=== PATIENT | male | born 1930 | race Caucasian/White ===

== ENCOUNTER 2017-01-25 16:16 | Emergency (ER) | payer MEDICARE, BC ==
--- NOTE | 2017-01-25 16:37 | Emergency Department Record ---
History of Present Illness - General Chief Complaint: Difficulty Breathing Stated Complaint: OSMEL Time Seen by Provider: 01/25/17 16:37 Source: Patient Mode of Arrival: Wheelchair Limitations: No limitations - History of Present Illness Initial Comments: pt has been increasingly sob over last few days and has had some chest tightness MD Complaint: Chest pain, Shortness of breath Onset/Timin -: Days(s) Worsens With: Exertion Associated Symptoms: Cough, Other (wheezing) Treatments Prior to Arrival: None - Related Data Home Medications Medication Instructions Recorded Confirmed Last Taken Furosemide [Lasix] 20 mg PO DAILY 01/25/17 01/25/17 01/25/17 Gabapentin [Neurontin] 300 mg PO TID 01/25/17 01/25/17 01/25/17 Hum Insulin NPH/Reg Insulin Hm 8 units SQ DAILY 01/25/17 01/25/17 01/25/17 [Novolin 70/30] Hum Insulin NPH/Reg Insulin Hm 26 units SQ QHS 01/25/17 01/25/17 01/24/17 [Novolin 70/30] Meloxicam [Mobic] 15 mg PO DAILY 01/25/17 01/25/17 01/25/17 Methotrexate [Xatmep] 2.5 mg PO WEEKLY 01/25/17 01/25/17 Unknown Potassium Chloride 8 meq PO DAILY 01/25/17 01/25/17 01/25/17 Pravastatin Sodium [Pravachol] 40 mg PO QHS 01/25/17 01/25/17 01/24/17 Ramipril 10 mg PO DAILY 01/25/17 01/25/17 01/11/17 Tamsulosin HCl [Flomax] 0.4 mg PO DAILY 01/25/17 01/25/17 01/25/17 Allergies Allergy/AdvReac Type Severity Reaction Status Date / Time Sulfa (Sulfonamide Allergy RASH Verified 01/25/17 16:39 Antibiotics) Travel Screening - Travel/Exposure Within Last 30 Days Have you traveled within the last 30 days?: No - Travel/Exposure Within Last Year Have you traveled outside the [place] in the last year?: No - Additonal Travel Details Have you been exposed to anyone with a communicable illness?: No - Travel Symptoms Symptom Screening: None Review of Systems Reviewed: No additional complaints except as noted below Constitutional: Reports: As per HPI. Denies: Chills, Fever, Malaise, Night sweats, Weakness, Weight change Eyes: Reports: As per HPI. Denies: Eye discharge, Eye pain, Photophobia, Vision change ENT: Reports: As per HPI. Denies: Congestion, Dental pain, Ear pain, Epistaxis , Hearing loss, Throat pain Respiratory: Reports: As per HPI. Denies: Cough, Dyspnea, Hemoptysis, Stridor, Wheezes Cardiovascular: Reports: As per HPI. Denies: Arrhythmia, Chest pain, Dyspnea on exertion, Edema, Murmurs, Orthopnea, Palpitations, Paroxysmal nocturnal dyspnea, Rheumatic Fever, Syncope Endocrine: Reports: As per HPI. Denies: Fatigue, Heat or cold intolerance, Polydipsia, Polyuria Gastrointestinal: Reports: As per HPI. Denies: Abdominal pain, Constipation, Diarrhea, Hematemesis, Hematochezia, Melena, Nausea, Vomiting Genitourinary: Reports: As per HPI. Denies: Dysuria, Frequency, Hematuria, Incontinence, Retention, Testicular pain, Testicular mass, Urgency Musculoskeletal: Reports: As per HPI. Denies: Arthralgia, Back pain, Gout, Joint swelling, Myalgia, Neck pain Skin: Reports: As per HPI. Denies: Bruising, Change in color, Change in hair/ nails, Lesions, Pruritus, Rash Neurological: Reports: As per HPI. Denies: Abnormal gait, Confusion, Headache, Numbness, Paresthesias, Seizure, Tingling, Tremors, Vertigo, Weakness Psychiatric: Reports: As per HPI. Denies: Anxiety, Auditory hallucinations, Depression, Homicidal thoughts, Suicidal thoughts, Visual hallucinations Hematological/Lymphatic: Reports: As per HPI. Denies: Anemia, Blood Clots, Easy bleeding, Easy bruising, Swollen glands Past Medical History - SOCIAL HISTORY Smoking Status: Former smoker Alcohol Use: None Drug Use: None - RESPIRATORY Hx Respiratory Disorders: Yes Hx Asthma: Yes - CARDIOVASCULAR Hx Cardio Disorders: Yes Hx Hypotension: Yes (seeing Madshira) - NEURO Hx Neuro Disorders: No - GI Hx GI Disorders: No - Hx Genitourinary Disorders: Yes Hx Prostate Problems: Yes - ENDOCRINE Hx Endocrine Disorders: Yes Hx Diabetes: Yes Hx Thyroid Disease: No - MUSCULOSKELETAL Hx Musculoskeletal Disorders: No - PSYCH Hx Psych Problems: No - HEMATOLOGY/ONCOLOGY Hx Hematology/Oncology Disorders: No Family Medical History Any Significant Family History?: No Physical Exam - General General Appearance: Alert, Oriented x3, Cooperative, Mild distress - Head Head exam: Normal inspection - Eye Eye exam: Normal appearance, PERRL, EOMI Pupils: Normal accommodation - ENT ENT exam: Normal exam, Mucous membranes moist, Normal external ear exam, Normal orophraynx Ear exam: Normal external inspection. negative: External canal tenderness Nasal Exam: Normal inspection. negative: Discharge, Sinus tenderness Mouth exam: Normal external inspection, Tongue normal Teeth exam: Normal inspection. negative: Dental caries Throat exam: Normal inspection. negative: Tonsillar erythema, Tonsillar exudate - Neck Neck exam: Normal inspection, Full ROM. negative: Tenderness - Respiratory Respiratory exam: Respiratory distress, Wheezes - Cardiovascular Cardiovascular Exam: Regular rate, Normal rhythm, Normal heart sounds - GI/Abdominal GI/Abdominal exam: Soft, Normal bowel sounds. negative: Tenderness - Rectal Rectal exam: Deferred - exam: Deferred - Extremities Extremities exam: Normal inspection, Full ROM, Normal capillary refill. negative: Tenderness - Back Back exam: Reports: Normal inspection, Full ROM. Denies: Muscle spasm, Rash noted, Tenderness - Neurological Neurological exam: Alert, CN II-XII intact, Normal gait, Oriented X3 - Psychiatric Psychiatric exam: Normal affect, Normal mood - Skin Skin exam: Dry, Intact, Normal color, Warm Course Vital Signs 01/25/17 16:17 Temperature 98.2 F Pulse Rate 97 H Respiratory 16 Rate Blood Pressure 155/83 Pulse Ox 97 - Reevaluation(s) Reevaluation #1: 01/25/17 19:38 d/w carol who would like pt transferred Reevaluation #2: 01/25/17 19:39 pt is feeling better Medical Decision Making - Lab Data Result diagrams: 01/25/17 16:40 01/25/17 16:40 Disposition Disposition: Transfer Clinical Impression: Pneumonitis, Renal mass Acute CHF Qualifiers: Congestive heart failure type: unspecified congestive heart failure type Qualified Code(s): I50.9 - Heart failure, unspecified Anemia Qualifiers: Anemia type: unspecified type Qualified Code(s): D64.9 - Anemia, unspecified Disposition: Acute Care Hospital Transfer Transfer To: [facility] Reason For Transfer: specialists Accepting Physician: dr moise Time Discussed w/Accepting Physician: 19:49 Forms: Patient Portal Access Quality - Quality Measures Quality Measures: N/A - Blood Pressure Screening Does Patient Have Any of the Following: No Blood Pressure Classification: Pre-Hypertensive BP Reading Systolic Measurement: 155 Diastolic Measurement: 83 Screening for High Blood Pressure: < Pre-Hypertensive BP, F/U Documented > [ [id number]] Pre-Hypertensive Follow-up Interventions: Follow-up with rescreen every year.
[2017-01-25] MEDS ORDERED: IPRATROPIUM/ALBUTEROL (0.5MG/3MG) NEB INH ONE (16:43)
[2017-01-25 17:07] LABS: BASO % 1.3 % (0-6); EOS % 5.2 % (0-6); GRAN % 72.9 % (47-80); HEMATOCRIT 28.6 % (42.0-52.0); HEMOGLOBIN 8.6 gm/dl (14.0-18.0); LYMPH % 12.1 % (16-45); MEAN CELL VOLUME 86.9 fl (81-97); MEAN CORPUSCULAR HEMOGLOBIN 26.1 pg (27-33); MEAN CORPUSCULAR HGB CONC 30.1 g/dl (32-36); MEAN PLATELET VOLUME 10.5 fl (7.4-10.4); MONO % 8.5 % (0-9); PLATELET COUNT 361 K/uL (130-400); RED BLOOD COUNT 3.29 M/uL (4.40-5.70); RED CELL DISTRIBUTION WIDTH 16.9 % (11.5-14.5)
[2017-01-25 17:30] LABS: ALB/GLOB RATIO 0.9 (1.1-1.8); ALBUMIN 3.2 g/dL (4.0-5.0); ALKALINE PHOSPHATASE 75 U/L (40-129); ALT/SGPT 12 U/L (<41); AST/SGOT 20 U/L (10.0-50.0); BLOOD UREA NITROGEN 30 mg/dL (8-23); EST GLOMERULAR FILTRATION RATE > 60 mL/min; GLUCOSE,RANDOM 137 mg/dL (74-109); TOTAL PROTEIN 6.9 g/dL (6.6-8.7)
[2017-01-25 17:31] LABS: TROPONIN I < 0.30 ng/mL (0.00-0.300)
[2017-01-25] MEDS ORDERED: FUROSEMIDE IV 40MG/4ML VIAL IVP ONE (17:33)
[2017-01-25 17:43] LABS: CKMB 3.1 ng/mL (<6.73)
[2017-01-25] MEDS ORDERED: CEFTRIAXONE SODIUM 1 GM in 0.9 % SODIUM CHLORIDE 100ML 100 ML IVPB ONE (19:29)
[2017-01-25 19:40] LABS: URINE APPEARANCE CLEAR; URINE BILIRUBIN NEGATIVE (NEGATIVE); URINE BLOOD NEGATIVE (NEGATIVE); URINE COLOR YELLOW; URINE GLUCOSE (UA) NEGATIVE (NEGATIVE); URINE KETONE NEGATIVE (NEGATIVE); URINE LEUKOCYTE ESTERASE NEGATIVE (NEGATIVE); URINE NITRITE NEGATIVE (NEGATIVE); URINE PROTEIN NEGATIVE (NEGATIVE); URINE UROBILINOGEN 0.2 E.U./dL (0.20 - 1.00)
--- NOTE | 2017-01-27 08:23 | RADIOLOGY REPORT ---
EXAM: CHEST HISTORY: DIFFICULTY IN BREATHING. TECHNIQUE: AP upright view of the chest was performed. FINDINGS: There is cardiomegaly with mild pulmonary vascular congestion. There is no definitive pleural effusion. There is degenerative change of the left shoulder girdle. IMPRESSION: CARDIOMEGALY WITH PULMONARY VASCULAR CONGESTION. JOB NUMBER: [id number] MTDD
--- NOTE | 2017-01-27 08:53 | CT ANGIOGRAM REPORT ---
EXAM: CTA OF THE CHEST WITH CONTRAST HISTORY: ELEVATED D-DIMER, CHEST PAIN. TECHNIQUE: CTA of the chest was performed after intravenous administration of 80 ml of Omnipaque 350 contrast material. Sagittal and coronal MIP images were performed on an independent workstation. FINDINGS: The mediastinal vasculature enhances normally. No mass or filling defect to suggest pulmonary embolism. There is cardiomegaly without pericardial effusion. There is nodular bilateral pleural effusion/pleural thickening. There is ground glass opacity in the left upper lobe. There is a soft tissue mass in the superior pole of the right kidney measuring 8.1 x 6.7 cm. IMPRESSION: 1. NO CTA FINDINGS SUGGESTIVE OF PULMONARY EMBOLISM. 2. NODULAR BILATERAL PLEURAL THICKENING AND EFFUSION. FINDINGS ARE SUSPICIOUS FOR NEOPLASM. 3. GROUND GLASS OPACITY IN THE LEFT UPPER LOBE LIKELY RELATED TO PNEUMONITIS. LINEAR SCARRING IN THE LEFT LOWER LOBE. 4. SOFT TISSUE MASS IN THE SUPERIOR POLE OF THE RIGHT KIDNEY. THIS MEASURES 8.1 X 6.7 CM. FINDINGS ARE CONSISTENT WITH NEOPLASM. JOB NUMBER: [id number] MTDD
== END 2017-01-25 20:45 | disposition short-term general hospital (02) ==
LOC: ER 16:16
DX: J18.9 Pneumonia, unspecified organism (principal); N28.89 Other specified disorders of kidney and ureter; I50.9 Heart failure, unspecified; D64.9 Anemia, unspecified; R79.89 Other specified abnormal findings of blood chemistry; E11.9 Type 2 diabetes mellitus without complications; Z79.4 Long term (current) use of insulin; Z87.891 Personal history of nicotine dependence
CPT/HCPCS: 99285 ×2; 96365; 96375; 82550; 85025; 82553; 84484; 80053; 81003; 85379; 83880; 71010; 71275; 94640; 93005; Q9967; J1940

== ENCOUNTER 2017-02-22 16:01 | Inpatient (IN) | payer MEDICARE, BC ==
--- NOTE | 2017-02-22 16:36 | Emergency Department Record ---
History of Present Illness - General Chief Complaint: Dizziness Stated Complaint: LOW BLOOD PRESSURE Time Seen by Provider: 02/22/17 16:35 Source: Patient, Family Mode of Arrival: Wheelchair Limitations: No limitations - History of Present Illness Initial Comments: 86 yo male presents to ED for evaluation of "low blood pressure" at home this morning. Patient reports that he was instructed to take his blood pressure daily after his Metoprolol was increased from 12.5 mg to 50 mg 2 days ago. Patient denies fevers, chills, or recent illness. Patient denies urinary or cough symptoms. Patient reports a history of cardiomyopathy and renal mass at his baseline that are being managed conservatively at this time. MD Complaint: Other Onset/Timin -: Week(s) Timing: Gradual onset Description: Lightheadedness History of Same: Yes History of Trauma: No Improves With: Nothing Worsens With: Nothing Associated Symptoms: Denies other symptoms - Loree Coma Scale Eye Response: (4) Open spontaneously Motor Response: (6) Obeys commands Verbal Response: (5) Oriented Loree Total: 15 - Related Data Home Medications Medication Instructions Recorded Confirmed Last Taken Hydrocodone/Acetaminophen [[place] 1 each PO Q6H 02/22/17 02/22/17 Unknown 5-325 Tablet] Lisinopril [Zestril] 5 mg PO DAILY 02/22/17 02/22/17 02/22/17 Metoprolol Succinate 25 mg PO BID 02/22/17 02/22/17 02/22/17 Allergies Allergy/AdvReac Type Severity Reaction Status Date / Time No Known Drug Allergies Allergy Verified 02/22/17 16:26 Travel Screening - Travel/Exposure Within Last 30 Days Have you traveled within the last 30 days?: No Review of Systems Constitutional: Denies: Chills, Fever, Malaise, Night sweats Eyes: Denies: Eye discharge, Eye pain ENT: Denies: Congestion, Ear pain, Epistaxis Respiratory: Denies: Cough, Dyspnea Cardiovascular: Denies: Chest pain, Dyspnea on exertion Endocrine: Denies: Fatigue, Heat or cold intolerance Gastrointestinal: Denies: Abdominal pain, Nausea, Vomiting Genitourinary: Denies: Incontinence, Retention Musculoskeletal: Denies: Arthralgia, Back pain, Gout, Joint swelling Skin: Denies: Bruising, Change in color Neurological: Reports: Vertigo. Denies: Abnormal gait, Confusion, Headache Psychiatric: Denies: Anxiety Hematological/Lymphatic: Denies: Anemia, Blood Clots Past Medical History - SOCIAL HISTORY Smoking Status: Former smoker Alcohol Use: None Drug Use: None - RESPIRATORY Hx Respiratory Disorders: Yes Hx Asthma: Yes - CARDIOVASCULAR Hx Cardio Disorders: Yes Hx CHF: Yes Hx Hypotension: Yes - NEURO Hx Neuro Disorders: No - GI Hx GI Disorders: No - Hx Genitourinary Disorders: Yes Hx Prostate Problems: Yes Comment:: mass on right kidney - ENDOCRINE Hx Endocrine Disorders: Yes Hx Diabetes: Yes Hx Thyroid Disease: No - MUSCULOSKELETAL Hx Musculoskeletal Disorders: Yes Hx Arthritis: Yes - PSYCH Hx Psych Problems: No - HEMATOLOGY/ONCOLOGY Hx Hematology/Oncology Disorders: No Family Medical History Any Significant Family History?: No Physical Exam - General General Appearance: Alert, Oriented x3, Cooperative, Mild distress Limitations: No limitations - Head Head exam: Atraumatic, Normocephalic, Normal inspection Head exam detail: negative: Abrasion, Contusion, Faust's sign, General tenderness, Hematoma, Laceration - Eye Eye exam: Normal appearance. negative: Conjunctival injection, Periorbital swelling, Periorbital tenderness, Scleral icterus - ENT Ear exam: negative: Auricular hematoma, Auricular trauma Nasal Exam: negative: Active bleeding, Discharge, Dried blood, Foreign body Mouth exam: negative: Drooling, Laceration, Muffled voice, Tongue elevation - Neck Neck exam: Normal inspection. negative: Meningismus, Tenderness - Respiratory Respiratory exam: Normal lung sounds bilaterally. negative: Rales, Respiratory distress, Rhonchi, Stridor - Cardiovascular Cardiovascular Exam: Regular rate, Normal rhythm, Normal heart sounds - GI/Abdominal GI/Abdominal exam: Soft. negative: Rebound, Rigid, Tenderness - Rectal Rectal exam: Deferred - exam: Deferred - Extremities Extremities exam: Normal inspection. negative: Calf tenderness, Pedal edema, Tenderness - Back Back exam: Denies: CVA tenderness (R), CVA tenderness (L) - Neurological Neurological exam: Alert, Oriented X3. negative: Motor sensory deficit - Psychiatric Psychiatric exam: Normal affect, Normal mood - Skin Skin exam: Normal color. negative: Abrasion Type of lesion: negative: abrasion Course Vital Signs 02/22/17 16:20 Temperature 97.8 F Pulse Rate 96 H Respiratory 18 Rate Blood Pressure 98/62 Pulse Ox 94 L - Reevaluation(s) Reevaluation #1: 02/22/17 16:35 EKG: NSR 91 LBBB, no Sgarbossa criteria present. No change from 01/25/17 Reevaluation #2: 02/22/17 17:08 Labs reviewed, Hgb 8.7 (previous 8.6 01/25/17). BUN 43 (baseline 30), Creatinine 1.7 (baseline 1.0). Potassium 5.4. Labs are otherwise grossly unremarkable for an acute process. repeat BP currently 100/68. Will discuss admission for IVF hydration and BP monitoring. 02/22/17 17:30 Reevaluation #3: 02/22/17 17:40 Case was discussed with Kourtney Ho, will accept admission. Patient all family members were updated on results as well and agree with the plan as discussed. Medical Decision Making - Lab Data Result diagrams: 02/22/17 16:52 02/22/17 16:52 Disposition Disposition: Admit Clinical Impression: Anemia Qualifiers: Anemia type: unspecified type Qualified Code(s): D64.9 - Anemia, unspecified ARF (acute renal failure) Qualifiers: Acute renal failure type: unspecified Qualified Code(s): N17.9 - Acute kidney failure, unspecified Hypotension Qualifiers: Hypotension type: unspecified hypotension type Qualified Code(s): I95.9 - Hypotension, unspecified Disposition: Still a Patient at [facility] Decision to Admit: Admit from ER Decision to Admit Date: 02/22/17 Decision to Admit Time: 17:26 Condition: (2) Stable Time of Disposition: 17:26 Quality - Quality Measures Quality Measures: N/A - Blood Pressure Screening Does Patient Have Any of the Following: Active Dx of HTN Blood Pressure Classification: Normal BP Reading Systolic Measurement: 98 Diastolic Measurement: 62 Screening for High Blood Pressure: Patient Exclusion, Hx of HTN [G9744]
[2017-02-22] MEDS ORDERED: 0.9 % SODIUM CHLORIDE 1000ML 500 ML IV SCH (17:00)
[2017-02-22 17:01] LABS: BASO % 0.9 % (0-6); EOS % 2.9 % (0-6); GRAN % 78.2 % (47-80); HEMOGLOBIN 8.7 gm/dl (14.0-18.0); LYMPH % 10.1 % (16-45); MEAN CELL VOLUME 85.3 fl (81-97); MEAN CORPUSCULAR HEMOGLOBIN 25.5 pg (27-33); MEAN PLATELET VOLUME 10.9 fl (7.4-10.4); MONO % 7.9 % (0-9); PLATELET COUNT 340 K/uL (130-400); RED CELL DISTRIBUTION WIDTH 18.4 % (11.5-14.5); WHITE BLOOD COUNT W/O DIFF 7.9 K/uL (4.2-12.2)
[2017-02-22 17:20] LABS: ALBUMIN 3.4 g/dL (4.0-5.0); BILIRUBIN,TOTAL 0.6 mg/dL (0.2-1.0); CREATININE 1.7 mg/dL (0.7-1.2); TOTAL PROTEIN 6.9 g/dL (6.6-8.7)
[2017-02-22] MEDS ORDERED: ACETAMINOPHEN 500 MG TABLET PO PRN (18:26)
[2017-02-22] MEDS ORDERED: 0.9 % SODIUM CHLORIDE 1000ML 1,000 ML IV PRN (18:26)
[2017-02-22] MEDS: HYDROCODONE/APAP 5/325MG TABLET PO SCH (20:39)
[2017-02-22] MEDS: GABAPENTIN 300 MG CAPSULE PO SCH (21:34)
[2017-02-22] MEDS: SIMVASTATIN 20 MG TABLET PO SCH (21:34)
[2017-02-22 21:39] LABS: ALB/GLOB RATIO 0.9 (1.1-1.8); ALBUMIN 2.9 g/dL (4.0-5.0); BILIRUBIN,TOTAL 0.5 mg/dL (0.2-1.0); CREATININE 1.6 mg/dL (0.7-1.2); TOTAL PROTEIN 6.1 g/dL (6.6-8.7)
[2017-02-22] MEDS: FUROSEMIDE IV 20MG/2ML VIAL IVP ONE ×2 (23:35→23:46)
[2017-02-23 00:10] LABS: URINE APPEARANCE CLEAR; URINE BILIRUBIN NEGATIVE (NEGATIVE); URINE BLOOD NEGATIVE (NEGATIVE); URINE COLOR YELLOW; URINE GLUCOSE (UA) NEGATIVE (NEGATIVE); URINE KETONE NEGATIVE (NEGATIVE); URINE LEUKOCYTE ESTERASE NEGATIVE (NEGATIVE); URINE NITRITE NEGATIVE (NEGATIVE); URINE PROTEIN NEGATIVE (NEGATIVE); URINE UROBILINOGEN 0.2 E.U./dL (0.20 - 1.00)
[2017-02-23] MEDS: HYDROCODONE/APAP 5/325MG TABLET PO SCH ×3 (02:55→15:08)
[2017-02-23] MEDS: NOVOLOG 70/30 FLEXPEN 100 UNITS/ML SQ SCH ×2 (06:31→18:23)
[2017-02-23 06:44] LABS: BASO % 0.6 % (0-6); EOS % 2.6 % (0-6); GRAN % 79.5 % (47-80); HEMATOCRIT 27.5 % (42.0-52.0); HEMOGLOBIN 8.2 gm/dl (14.0-18.0); LYMPH % 10.2 % (16-45); MEAN CELL VOLUME 86.2 fl (81-97); MEAN CORPUSCULAR HEMOGLOBIN 25.7 pg (27-33); MEAN CORPUSCULAR HGB CONC 29.8 g/dl (32-36); MEAN PLATELET VOLUME 10.8 fl (7.4-10.4); MONO % 7.1 % (0-9); PLATELET COUNT 309 K/uL (130-400); RED BLOOD COUNT 3.19 M/uL (4.40-5.70); RED CELL DISTRIBUTION WIDTH 18.2 % (11.5-14.5); WHITE BLOOD COUNT W/O DIFF 7.8 K/uL (4.2-12.2)
[2017-02-23 08:04] LABS: ALB/GLOB RATIO 0.9 (1.1-1.8); BILIRUBIN,TOTAL 0.6 mg/dL (0.2-1.0); CREATININE 1.3 mg/dL (0.7-1.2); TOTAL PROTEIN 6.2 g/dL (6.6-8.7)
[2017-02-23] MEDS: FUROSEMIDE 40 MG TABLET PO SCH ×2 (10:13→16:13)
[2017-02-23] MEDS: GABAPENTIN 300 MG CAPSULE PO SCH ×3 (10:13→21:41)
[2017-02-23] MEDS ORDERED: HYDROCODONE/APAP 5/325MG TABLET PO PRN (16:55)
[2017-02-23] MEDS: SIMVASTATIN 20 MG TABLET PO SCH (21:41)
--- NOTE | 2017-02-24 04:04 | RADIOLOGY REPORT ---
DATE: 02/22/2017. EXAM: CHEST, TWO VIEWS. COMPARISON: 01/25/2017. HISTORY: Dyspnea. Evaluate for infection. TECHNIQUE: Two views of the chest were obtained. FINDINGS: The cardiomediastinal silhouette is stable. Telemetry leads overlie the chest. There appears to be prominence of a pulmonary vascularity as before. There appear to be patchy opacities bilaterally within the lower lungs, left greater than right, likely representing atelectasis or developing infiltrate. Suggestion of small effusions. IMPRESSION: BILATERAL AIRSPACE DISEASE AND SMALL EFFUSIONS. FINDINGS COULD RELATE TO CONGESTIVE HEART FAILURE IN THE APPROPRIATE CLINICAL SETTING VERSUS INFECTIOUS INFILTRATES. JOB NUMBER: [id number] MTDD
[2017-02-24] MEDS: NOVOLOG 70/30 FLEXPEN 100 UNITS/ML SQ SCH ×3 (07:07→18:27)
[2017-02-24] MEDS: FUROSEMIDE 40 MG TABLET PO SCH (10:09)
[2017-02-24] MEDS: GABAPENTIN 300 MG CAPSULE PO SCH ×3 (10:09→21:43)
[2017-02-24 11:16] LABS: HEMATOCRIT 28.3 % (42.0-52.0); HEMOGLOBIN 8.4 gm/dl (14.0-18.0); MEAN CELL VOLUME 85.8 fl (81-97); MEAN CORPUSCULAR HGB CONC 29.7 g/dl (32-36); MEAN PLATELET VOLUME 10.3 fl (7.4-10.4); PLATELET COUNT 308 K/uL (130-400); RED CELL DISTRIBUTION WIDTH 18.3 % (11.5-14.5); WHITE BLOOD COUNT W/O DIFF 7.9 K/uL (4.2-12.2)
[2017-02-24 11:31] LABS: ALB/GLOB RATIO 0.9 (1.1-1.8); ALBUMIN 3.1 g/dL (4.0-5.0); ALKALINE PHOSPHATASE 67 U/L (40-129); ALT/SGPT 13 U/L (<41); AST/SGOT 18 U/L (10.0-50.0); BLOOD UREA NITROGEN 38 mg/dL (8-23); CREATININE 0.9 mg/dL (0.7-1.2); EST GLOMERULAR FILTRATION RATE > 60 mL/min; GLUCOSE,RANDOM 112 mg/dL (74-109); TOTAL PROTEIN 6.4 g/dL (6.6-8.7)
[2017-02-24 11:51] LABS: MEAN CORPUSCULAR HEMOGLOBIN 25.4 pg (27-33)
[2017-02-24 12:24] LABS: HYPOCHROMIA 1+
--- NOTE | 2017-02-24 15:39 | History & Physical ---
History of Present Illness - Date of Service Date of Service for History & Physical: 02/23/17 - History of Present Illness Admitting Diagnosis: Hypotension. ARF. Hyperkalemia. B-Javier overdose History of Present Illness: 86yo male with CC of shortness of breath. He has a history of CHF ejection fraction 15-20%, asthma, renal mass. Patient had recent visit to [facility] ED last month for similar complaint. 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 He was transferred at that time to [facility] for further work up. Patient was seen by Dr. Zamudio of [facility] cardiology and underwent echocardiogram revealing global hypokinesis with 15-20% EF. Since his discharge, patient has continued to have episodes of shortness of breath. They tend to occur when he is sleeping flat in bed or at rest. Says his takes his blood pressure and oxygen saturation at home. This past Friday he had increased his metoprolol from 12.5mg twice daily to 50mg twice daily. He reports he was told to do so by recruiting manager. His checked his BP during an episode of shortness of breath and found it to be 70/45 so had EMS bring patient to ED. Upon arrival to the ED, his BP had improved to 91/61. He had an EKG which continued to show a LBBB. He received a NS fluid bolus for his hypotension. CXR showed B/L airspace disease with small pleural effusions suspicious for CHF vs infiltrates. CMP showed slight worsening of his baseline kidney function with BUN of 43 and Cr at 1.7. baseline is 1.1. Patient's evening dose of metoprolol was held and he was admitted for hypotension. 02/23/17- Patient continued to have shortness of breath upon coming to the floor likely due to exacerbation of his fluid overload. He received lasix 20mg IV and head of bed was elevated with improvement in symptoms. IVF was discontinued. He was placed on a fluid restricted diet at 2000cc and his normal lasix dosing 40mg po qam and 20mg po qpm was resumed. He diuresed quite well with 800cc off and weight down 6 pounds today. He says his breathing does feel better but still has occasional shortness of breath while at rest. He denies any lower extremity swelling, chest pain, weakness. 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 He has also decided not to do any further work up for the large renal mass. He says his heart wouldn't be strong enough to handle a major surgery anyway. recruiting manager: [employer] Travel Screening - Travel/Exposure Within Last 30 Days Have you traveled within the last 30 days?: No - Travel/Exposure Within Last Year Have you traveled outside the [place] in the last year?: No - Additonal Travel Details Have you been exposed to anyone with a communicable illness?: No - Travel Symptoms Symptom Screening: None Review of Systems Constitutional: Denies: Chills, Fever, Malaise, Night sweats Eyes: Denies: Eye discharge, Eye pain ENT: Denies: Congestion, Ear pain, Epistaxis Respiratory: Reports: Dyspnea. Denies: Cough Cardiovascular: Reports: Paroxysmal nocturnal dyspnea. Denies: Chest pain, Dyspnea on exertion, Edema, Palpitations, Syncope Endocrine: Denies: Fatigue, Heat or cold intolerance Gastrointestinal: Denies: Abdominal pain, Nausea, Vomiting Genitourinary: Denies: Incontinence, Retention Musculoskeletal: Denies: Arthralgia, Back pain, Gout, Joint swelling Skin: Denies: Bruising, Change in color Neurological: Denies: Abnormal gait, Confusion, Headache, Vertigo Psychiatric: Denies: Anxiety Hematological/Lymphatic: Denies: Anemia, Blood Clots Past Medical History - SOCIAL HISTORY Smoking Status: Former smoker - RESPIRATORY Hx Respiratory Disorders: Yes Hx Asthma: Yes - CARDIOVASCULAR Hx Cardio Disorders: Yes Hx CHF: Yes Hx Hypotension: Yes - NEURO Hx Neuro Disorders: No - GI Hx GI Disorders: No - Hx Genitourinary Disorders: Yes Hx Prostate Problems: Yes Comment:: mass on right kidney - ENDOCRINE Hx Endocrine Disorders: Yes Hx Diabetes: Yes Hx Thyroid Disease: No - MUSCULOSKELETAL Hx Musculoskeletal Disorders: Yes Hx Arthritis: Yes - PSYCH Hx Psych Problems: No - HEMATOLOGY/ONCOLOGY Hx Hematology/Oncology Disorders: No Family Medical History Any Significant Family History?: No H&P Meds/Allergies - Allergies Allergies: Allergies Allergy/AdvReac Type Severity Reaction Status Date / Time No Known Drug Allergies Allergy Verified 02/22/17 16:26 - Home Medications Home Medications Medication Instructions Recorded Confirmed Last Taken Hydrocodone/Acetaminophen [[place] 1 each PO Q6H 02/22/17 02/22/17 Unknown 5-325 Tablet] Lisinopril [Zestril] 5 mg PO DAILY 02/22/17 02/22/17 02/22/17 Metoprolol Succinate 25 mg PO BID 02/22/17 02/22/17 02/22/17 - Active Medications Active Medications: Current Medications Acetaminophen (Tylenol 500mg Tab) 1,000 mg PO Q6H PRN PRN Reason: PAIN/TEMP Hydrocodone Bitart/Acetaminophen ([place] 5mg/325mg) 1 each PO Q6H PRN PRN Reason: Pain - General Furosemide (Lasix) 40 mg PO DAILY [facility] Last Admin: 02/24/17 10:09 Dose: 40 mg Furosemide (Lasix) 20 mg PO 1600 SUSAN Gabapentin (Neurontin) 300 mg PO TID [facility] Last Admin: 02/24/17 10:09 Dose: 300 mg Levofloxacin (Levaquin Tab) 750 mg PO DAILYFLUOR [facility] Stop: 03/02/17 23:59 Simvastatin (Zocor) 20 mg PO QHS [facility] Last Admin: 02/23/17 21:41 Dose: 20 mg Physical Exam - General General Appearance: Alert, Oriented x3, Cooperative, No acute distress Limitations: No limitations - Head Head exam: Atraumatic, Normocephalic, Normal inspection Head exam detail: negative: Abrasion, Contusion, Faust's sign, General tenderness, Hematoma, Laceration - Eye Eye exam: Normal appearance. negative: Conjunctival injection, Periorbital swelling, Periorbital tenderness, Scleral icterus - ENT Ear exam: negative: Auricular hematoma, Auricular trauma Nasal Exam: negative: Active bleeding, Discharge, Dried blood, Foreign body Mouth exam: negative: Drooling, Laceration, Muffled voice, Tongue elevation - Neck Neck exam: Normal inspection. negative: Meningismus, Tenderness - Respiratory Respiratory exam: Normal lung sounds bilaterally. negative: Rales, Respiratory distress, Rhonchi, Stridor - Cardiovascular Cardiovascular Exam: Regular rate, Normal rhythm, Normal heart sounds - GI/Abdominal GI/Abdominal exam: Soft. negative: Rebound, Rigid, Tenderness - Rectal Rectal exam: Deferred - exam: Deferred - Extremities Extremities exam: Normal inspection. negative: Calf tenderness, Pedal edema, Tenderness - Back Back exam: Denies: CVA tenderness (R), CVA tenderness (L) - Neurological Neurological exam: Alert, Oriented X3. negative: Motor sensory deficit - Psychiatric Psychiatric exam: Normal affect, Normal mood - Skin Skin exam: Normal color. negative: Abrasion Type of lesion: negative: abrasion Results - Labs Result Diagrams: 02/24/17 11:06 02/24/17 11:06 - Imaging and Cardiology Chest x-ray Status: Report reviewed (b/l airspace disease with small pleural effusions; CHF vs infiltrates) VTE H&P Assessment - Risk for VTE Risk for VTE: Yes Risk Level: High Risk Assessment Date: 02/23/17 Risk Assessment Time: 11:00 VTE Orders Placed or Will Be Placed: Yes Plan - Inpatient Certification Inpatient Certification: Admit to inpatient care: Based on my medical assessment, after consideration of patient's risk factors (age, co-morbidities and patient presenting symptoms and acuity), I expect that this patient will remain in the hospital greater than or equal to two midnights and that the services needed warrant inpatient care because: Patient Risk Factors: [age, CHF with acute exacerbation, shortness of breath, acute kidney injury] Estimated length of stay: [72-96H] The patient may reasonably be expected to be discharged or transferred to a hospital within 96 hours after admission to [facility]. Services needed: [IV diuretics, cardiac monitoring, ] Post hospital care (if known): [] I certify that my determination is in accordance with my understanding of Medicare requirements for reasonable and necessary inpatient services. 02/24/17 20:56 - Detailed Diagnosis and Plan (1) CHF (congestive heart failure), NYHA class IV Current Visit: Yes Status: Acute Qualifiers: Congestive heart failure type: combined Congestive heart failure chronicity : acute on chronic Qualified Code(s): I50.43 - Acute on chronic combined systolic (congestive) and diastolic (congestive) heart failure Base Code: I50.9 - HEART FAILURE, UNSPECIFIED Comment: 02/23/17- last echo done January 2017 showed global hypokinesis with EF of 15-20%. He is being managed by Dr. Zamudio. CXR in ED showed b/l airspace disease with small pleural effusions. This was likely worsened by increase of metoprolol to 50mg po twice daily from 12.5mg and fluid bolus received. -hold metoprolol until adequately diuresed and BP improves -lasix 20mg IV given last night, resume lasix 40mg po qam and lasix 20mg po qpm -obtain weight daily -monitor I&O. already had 800cc off and six pounds weight loss. -vitals q8H -repeat labs qam (2) ROMERO (acute kidney injury) Current Visit: Yes Status: Acute Base Code: N17.9 - ACUTE KIDNEY FAILURE, UNSPECIFIED Comment: 02/23/17- improving. BUN of 43 and Cr of 1.7 in ED improved to 43, 1.3 today. Likely due to acute CHF exacerbation with hypotension. renal function improved with diuresis. -continue monitoring labs qam -continue treatment of acute CHF exacerbation (3) Shortness of breath Current Visit: Yes Status: Acute Base Code: R06.02 - SHORTNESS OF BREATH Comment: 02/23/17- patient states this has improved. He had one episode last night of shortness of breath which improved following breathing treatment, supplemental oxygen and lasix. He has difficult time laying flat and finds himself waking up in the middle of the night short of breath. -will continue treatment for acute CHF with repeat CXR tomorrow. If no improvement on XR will initiate therapy for pneumonia as he had findings of this on CTA last month, received no abx therapy and CXR last night was not conclusive for CHF vs pneumonitis. -continue breathign treatments per respiratory -continue O2 to keep sats >92% (4) Hypotension Current Visit: Yes Status: Acute Qualifiers: Hypotension type: unspecified hypotension type Qualified Code(s): I95.9 - Hypotension, unspecified Base Code: I95.9 - HYPOTENSION, UNSPECIFIED Comment: 02/23/17- improving. Patient increased his metoprolol from 12.5mg twice daily to 50mg twice daily. he says that was what he was instructed to do by his recruiting manager this past friday. -continue holding metoprolol -vitals q8H (5) Full code status Current Visit: Yes Status: Acute Base Code: Z78.9 - OTHER SPECIFIED HEALTH STATUS Comment: 02/23/17- patient is a full code (6) DVT prophylaxis Current Visit: Yes Status: Acute Base Code: [id number] - Comment: 02/23/17- lovenox 40mg SQ daily
--- NOTE | 2017-02-24 15:39 | Physician Progress Note ---
Subjective - Date Date of Physician Progress Note: 02/24/17 - Subjective Subjective Comment: 02/24/17- Patient states he is feeling somewhat better today. Says he had another episode of shortness of breath this morning. says it improved with elevation and a breathing treatment. He denies chest pain, lower leg swelling. Says he has not really noticed a cough but says he has been more fatigued than normal. Objective - General General Appearance: Alert, Oriented x3, Cooperative, No acute distress Limitations: No limitations - Head Head exam: Atraumatic, Normocephalic, Normal inspection Head exam detail: negative: Abrasion, Contusion, Faust's sign, General tenderness, Hematoma, Laceration - Eye Eye exam: Normal appearance. negative: Conjunctival injection, Periorbital swelling, Periorbital tenderness, Scleral icterus - ENT Ear exam: negative: Auricular hematoma, Auricular trauma Nasal Exam: negative: Active bleeding, Discharge, Dried blood, Foreign body Mouth exam: negative: Drooling, Laceration, Muffled voice, Tongue elevation - Neck Neck exam: Normal inspection. negative: Meningismus, Tenderness - Respiratory Respiratory exam: Normal lung sounds bilaterally. negative: Rales, Respiratory distress, Rhonchi, Stridor - Cardiovascular Cardiovascular Exam: Regular rate, Normal rhythm, Normal heart sounds - GI/Abdominal GI/Abdominal exam: Soft. negative: Rebound, Rigid, Tenderness - Rectal Rectal exam: Deferred - exam: Deferred - Extremities Extremities exam: Normal inspection. negative: Calf tenderness, Pedal edema, Tenderness - Back Back exam: Denies: CVA tenderness (R), CVA tenderness (L) - Neurological Neurological exam: Alert, Oriented X3. negative: Motor sensory deficit - Psychiatric Psychiatric exam: Normal affect, Normal mood - Skin Skin exam: Normal color. negative: Abrasion Type of lesion: negative: abrasion Assessment and Plan - Assessment and Plan (1) CHF (congestive heart failure), NYHA class IV Current Visit: Yes Status: Acute Qualifiers: Congestive heart failure type: combined Congestive heart failure chronicity : acute on chronic Qualified Code(s): I50.43 - Acute on chronic combined systolic (congestive) and diastolic (congestive) heart failure Base Code: I50.9 - HEART FAILURE, UNSPECIFIED Comment: 02/24/17- last echo done January 2017 showed global hypokinesis with EF of 15-20%. He is being managed by Dr. Zamudio. Spoke with Dr. Zamudio today who states patient's lopressor dose was not changed to 50mg twice daily. He agreed with current mgmt plan and felt patient could follow up in clinic 2-6 weeks. -resume metoprolol at 12.5mg -continue lasix 40mg po qam and lasix 20mg po qpm -obtain weight daily -monitor I&O and continue 2000cc fluid restriction -vitals q8H -repeat labs qam (2) Shortness of breath Current Visit: Yes Status: Acute Base Code: R06.02 - SHORTNESS OF BREATH Comment: 02/24/17- patient states this has improved but had another episode at rest this morning. Repeat CXR remains unchanged as far as airspace disease despite good diuretic response. -will initiate treatment for CAP. -blood cultures x2 -levaquin 750mg po daily. avoiding IV abx due to fluid status. continue cardiac monitoring with levaquin. -continue breathign treatments per respiratory -continue O2 to keep sats >92% (3) ROMERO (acute kidney injury) Current Visit: Yes Status: Acute Base Code: N17.9 - ACUTE KIDNEY FAILURE, UNSPECIFIED Comment: 02/24/17- resolved. Cr of 0.9, BUN of 38, eGFR >60. Likely due to acute CHF exacerbation with hypotension. renal function improved with diuresis. -continue monitoring labs qam -continue treatment of acute CHF exacerbation (4) Hypotension Current Visit: Yes Status: Acute Qualifiers: Hypotension type: unspecified hypotension type Qualified Code(s): I95.9 - Hypotension, unspecified Base Code: I95.9 - HYPOTENSION, UNSPECIFIED Comment: 02/24/17- improving. BP > 100/60 consistently. -resume metoprolol 12.5mg po bid -vitals q8H (5) DVT prophylaxis Current Visit: Yes Status: Acute Base Code: [id number] - Comment: 02/24/17- lovenox 40mg SQ daily (6) Full code status Current Visit: Yes Status: Acute Base Code: Z78.9 - OTHER SPECIFIED HEALTH STATUS Comment: 02/24/17- patient is a full code Results - Labs Result Diagrams: 02/24/17 11:06 02/24/17 11:06 DVT/PE Assessment - Risk for VTE Risk for VTE: No Risk Level: High Risk Assessment Date: 02/23/17 Risk Assessment Time: 11:00 VTE Orders Placed or Will Be Placed: Yes - Active Medicaitons Current Medications: Current Medications Acetaminophen (Tylenol 500mg Tab) 1,000 mg PO Q6H PRN PRN Reason: PAIN/TEMP Hydrocodone Bitart/Acetaminophen ([place] 5mg/325mg) 1 each PO Q6H PRN PRN Reason: Pain - General Furosemide (Lasix) 40 mg PO DAILY [facility] Last Admin: 02/24/17 10:09 Dose: 40 mg Furosemide (Lasix) 20 mg PO 1600 SUSAN Gabapentin (Neurontin) 300 mg PO TID [facility] Last Admin: 02/24/17 10:09 Dose: 300 mg Levofloxacin (Levaquin Tab) 750 mg PO DAILYFLUOR SUSAN Stop: 03/02/17 23:59 Simvastatin (Zocor) 20 mg PO QHS [facility] Last Admin: 02/23/17 21:41 Dose: 20 mg AMI Plan - Labs Result Diagrams: 02/24/17 11:06 02/24/17 11:06
[2017-02-24] MEDS: LEVOFLOXACIN 500 MG TABLET PO SCH (18:25)
[2017-02-24] MEDS: FUROSEMIDE 20 MG TABLET PO SCH (18:26)
[2017-02-24] MEDS: METOPROLOL TART 25 MG TABLET PO SCH (21:37)
[2017-02-24] MEDS: ENOXAPARIN 40 MG/0.4 ML SYR SQ SCH (21:42)
[2017-02-24] MEDS: SIMVASTATIN 20 MG TABLET PO SCH (21:43)
--- NOTE | 2017-02-25 07:41 | RADIOLOGY REPORT ---
EXAM: CHEST, TWO VIEWS HISTORY: SHORTNESS OF BREATH, CHF. TECHNIQUE: AP and lateral views of the chest were obtained. Comparison: Two view chest 02/22/17. Report of the prior study is not as yet available within PACS. FINDINGS: Mild cardiomegaly as before. There again appears to be pulmonary venous hypertension. Scattered infiltrate particularly in the bases very similar to before and bilateral pleural effusions slightly increased from before. Findings presumably represent CHF although basilar pneumonitis on either side could give a similar appearance. Continued follow-up suggested. No pneumothorax evident. Degenerative arthritis both shoulders and prominent spurring in the spine. IMPRESSION: 1. FINDINGS PRESUMABLY REPRESENTING CHF WITH SLIGHT INCREASE IN BILATERAL PLEURAL EFFUSIONS COMPARED TO THE PRIOR STUDY. 2. OTHERWISE, LITTLE APPRECIABLE CHANGE. CONTINUED FOLLOW-UP SUGGESTED. JOB NUMBER: [id number] [facility]
[2017-02-25] MEDS: NOVOLOG 70/30 FLEXPEN 100 UNITS/ML SQ SCH (08:06)
[2017-02-25 08:45] LABS: BASO % 0.7 % (0-6); EOS % 2.6 % (0-6); GRAN % 77.4 % (47-80); LYMPH % 10.3 % (16-45); MEAN CELL VOLUME 86.4 fl (81-97); MEAN PLATELET VOLUME 10.4 fl (7.4-10.4); PLATELET COUNT 326 K/uL (130-400); RED BLOOD COUNT 3.59 M/uL (4.40-5.70); RED CELL DISTRIBUTION WIDTH 18.6 % (11.5-14.5); WHITE BLOOD COUNT W/O DIFF 7.4 K/uL (4.2-12.2)
[2017-02-25 08:59] LABS: BLOOD UREA NITROGEN 32 mg/dL (8-23); CREATININE 1.1 mg/dL (0.7-1.2); EST GLOMERULAR FILTRATION RATE > 60 mL/min; GLUCOSE,RANDOM 116 mg/dL (74-109)
[2017-02-25] MEDS: ENOXAPARIN 40 MG/0.4 ML SYR SQ SCH (10:31)
[2017-02-25] MEDS: LEVOFLOXACIN 500 MG TABLET PO SCH (10:32)
[2017-02-25] MEDS: FUROSEMIDE 40 MG TABLET PO SCH (10:33)
[2017-02-25] MEDS: METOPROLOL TART 25 MG TABLET PO SCH (10:33)
[2017-02-25] MEDS: GABAPENTIN 300 MG CAPSULE PO SCH ×2 (10:33→15:37)
--- NOTE | 2017-02-25 11:40 | Discharge Summary ---
Providers Discharge Summary Date: 02/25/17 Date of admission: 02/24/17 11:26 Expected Date of Discharge: 02/25/17 Attending physician: Viktor Merchant Primary care physician: ZAINAB ALEGRE D.O. Physical Exam - Vital Signs Vital Signs: Vital Signs - Last 24 Hrs Temp Pulse Pulse Resp BP Pulse Ox 02/25/17 08:31 88 18 02/25/17 06:11 97.6 F 91 H 82 97 02/24/17 23:40 97.7 F 75 101 H 153/96 96 02/24/17 21:00 84 18 02/24/17 19:45 98.0 F 84 97/62 97 02/24/17 17:00 98.6 F 85 18 98/59 98 - General General Appearance: Alert, Oriented x3, Cooperative, No acute distress Limitations: No limitations - Head Head exam: Atraumatic, Normocephalic, Normal inspection Head exam detail: negative: Abrasion, Contusion, Faust's sign, General tenderness, Hematoma, Laceration - Eye Eye exam: Normal appearance. negative: Conjunctival injection, Periorbital swelling, Periorbital tenderness, Scleral icterus - ENT Ear exam: negative: Auricular hematoma, Auricular trauma Nasal Exam: negative: Active bleeding, Discharge, Dried blood, Foreign body Mouth exam: negative: Drooling, Laceration, Muffled voice, Tongue elevation - Neck Neck exam: Normal inspection. negative: Meningismus, Tenderness - Respiratory Respiratory exam: Normal lung sounds bilaterally. negative: Rales, Respiratory distress, Rhonchi, Stridor - Cardiovascular Cardiovascular Exam: Regular rate, Normal rhythm, Normal heart sounds - GI/Abdominal GI/Abdominal exam: Soft. negative: Rebound, Rigid, Tenderness - Rectal Rectal exam: Deferred - exam: Deferred - Extremities Extremities exam: Normal inspection. negative: Calf tenderness, Pedal edema, Tenderness - Back Back exam: Denies: CVA tenderness (R), CVA tenderness (L) - Neurological Neurological exam: Alert, Oriented X3. negative: Motor sensory deficit - Psychiatric Psychiatric exam: Normal affect, Normal mood - Skin Skin exam: Normal color. negative: Abrasion Type of lesion: negative: abrasion Hospitalization - Hospitalization Admission Diagnosis: Hypotension. ARF. Hyperkalemia. B-Javier overdose - Problem List/Discharge Diagnosis (1) CHF (congestive heart failure), NYHA class IV Status: Acute Discharge Diagnosis: Congestive heart failure type: combined Congestive heart failure chronicity : acute on chronic Qualified Code(s): I50.43 - Acute on chronic combined systolic (congestive) and diastolic (congestive) heart failure Base Code: I50.9 - HEART FAILURE, UNSPECIFIED Comment: 02/25/17- last echo done January 2017 showed global hypokinesis with EF of 15-20%. He is being managed by Dr. Zamudio. Spoke with Dr. Zamudio yesterday. He agreed with current mgmt plan and felt patient could follow up in clinic 2-6 weeks. -continue metoprolol at 12.5mg -continue lasix 40mg po qam and lasix 20mg po qpm -continue 2000cc fluid restricted diet at home -social work consult placed. will be sending home with home health care through [facility] which has special prgoram for heart failure patients. -had long discussion with patient, and neice. We discussed that Pat needs to have reasonable expectations for the types of physical activity he is goign to be able to complete. we discussed knowing his boundaries and when he needs to rest adn that workign with home health cardiac therapy should be helpful as well. -follow up with Dr. Zamudio in 2 weeks in [place] (2) Shortness of breath Status: Acute Base Code: R06.02 - SHORTNESS OF BREATH Comment: 02/25/17- patient states this has improved but had another episode at rest this evening. Most likely etiology is his advanced heart failure. Repeat CXR remained unchanged as far as airspace disease despite good diuretic response. -continue empriric CAP treatment with levaquin 500mg po daily -blood cultures x2 still pending (3) ROMERO (acute kidney injury) Status: Acute Base Code: N17.9 - ACUTE KIDNEY FAILURE, UNSPECIFIED Comment: 02/25/17- resolved. Cr of 0.9, BUN of 38, eGFR >60. Likely due to acute CHF exacerbation with hypotension. renal function improved with diuresis. (4) Hypotension Status: Acute Discharge Diagnosis: Hypotension type: unspecified hypotension type Qualified Code(s): I95.9 - Hypotension, unspecified Base Code: I95.9 - HYPOTENSION, UNSPECIFIED Comment: 02/25/17- improving. BP > 100/60 consistently. -continue metoprolol 12.5mg po bid (5) DVT prophylaxis Status: Acute Base Code: [id number] - Comment: 02/25/17- lovenox 40mg SQ daily (6) Full code status Status: Acute Base Code: Z78.9 - OTHER SPECIFIED HEALTH STATUS Comment: - patient is a full code - Hospitalization Course Disposition: Home Health Service Hospital Course: 86yo male with CC of shortness of breath. He has a history of CHF ejection fraction 15-20%, asthma, renal mass. Patient had recent visit to [facility] ED last month for similar complaint. 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 He was transferred at that time to [facility] for further work up. Patient was seen by Dr. Zamudio of [facility] cardiology and underwent echocardiogram revealing global hypokinesis with 15-20% EF. Since his discharge, patient has continued to have episodes of shortness of breath. They tend to occur when he is sleeping flat in bed or at rest. Says his takes his blood pressure and oxygen saturation at home. This past Friday he had increased his metoprolol from 12.5mg twice daily to 50mg twice daily. He reports he was told to do so by acute care occupational therapist. His checked his BP during an episode of shortness of breath and found it to be 70/45 so had EMS bring patient to ED. Upon arrival to the ED, his BP had improved to 91/61. He had an EKG which continued to show a LBBB. He received a NS fluid bolus for his hypotension. CXR showed B/L airspace disease with small pleural effusions suspicious for CHF vs infiltrates. CMP showed slight worsening of his baseline kidney function with BUN of 43 and Cr at 1.7. baseline is 1.1. Patient's evening dose of metoprolol was held and he was admitted for hypotension. 02/23/17- Patient continued to have shortness of breath upon coming to the floor likely due to exacerbation of his fluid overload. He received lasix 20mg IV and head of bed was elevated with improvement in symptoms. IVF was discontinued. He was placed on a fluid restricted diet at 2000cc and his normal lasix dosing 40mg po qam and 20mg po qpm was resumed. He diuresed quite well with 800cc off and weight down 6 pounds today. He says his breathing does feel better but still has occasional shortness of breath while at rest. He denies any lower extremity swelling, chest pain, weakness. 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 He has also decided not to do any further work up for the large renal mass. He says his heart wouldn't be strong enough to handle a major surgery anyway. 02/24/17- Patient states he is feeling somewhat better today. Says he had another episode of shortness of breath this morning. says it improved with elevation and a breathing treatment. He denies chest pain, lower leg swelling. Says he has not really noticed a cough but says he has been more fatigued than normal. 02/25/17- Patient continues to improve. he did have an episode of shortness of breath last evening. oxygen saturation never dropped below 96% during that time. The episode resolved on its own. he continues to deny chest pain, cough, leg swelling. is concerned about him going home without help. acute care occupational therapist: Robb Abnormal Labs: Abnormal Lab Results 02/24/17 02/24/17 02/25/17 Range/Units 17:00 21:45 08:35 RBC 3.59 L (4.40-5.70) M/uL Hgb 9.0 L (14.0-18.0) gm/dl Hct 31.0 L (42.0-52.0) % MCH 25.0 L (27-33) pg MCHC 29.0 L (32-36) g/dl RDW 18.6 H (11.5-14.5) % Lymphocytes % 10.3 L (16-45) % Potassium (3.4-4.5) mmol/L Chloride (98-107) mmol/L Carbon Dioxide (22-29) mmol/L BUN (8-23) mg/dL POC Glucose 124 H 114 H (70-110) mg/dL Random Glucose (74-109) mg/dL Calcium (8.8-10.2) mg/dL 02/25/17 Range/Units 08:35 RBC (4.40-5.70) M/uL Hgb (14.0-18.0) gm/dl Hct (42.0-52.0) % MCH (27-33) pg MCHC (32-36) g/dl RDW (11.5-14.5) % Lymphocytes % (16-45) % Potassium 4.6 H (3.4-4.5) mmol/L Chloride 97 L (98-107) mmol/L Carbon Dioxide 31.0 H (22-29) mmol/L BUN 32 H (8-23) mg/dL POC Glucose (70-110) mg/dL Random Glucose 116 H (74-109) mg/dL Calcium 8.6 L (8.8-10.2) mg/dL Condition at Discharge: (2) Stable Discharge Medications - Discharge Medications Prescriptions: Furosemide [Lasix] 20 mg PO 1600 #30 tablet Furosemide [Lasix] 40 mg PO DAILY #30 tablet Levofloxacin [Levaquin] 500 mg PO DAILY #5 tab Metoprolol Tartrate [Lopressor] 12.5 mg PO BID #60 tab Home Medications: Ambulatory Orders Gabapentin [Neurontin] 300 mg PO TID 01/25/17 [Last Taken 02/22/17] Hum Insulin NPH/Reg Insulin Hm [Novolin 70/30] 8 units SQ DAILY 01/25/17 [Last Taken 02/22/17] Hum Insulin NPH/Reg Insulin Hm [Novolin 70/30] 24 units SQ QHS 01/25/17 [Last Taken 02/21/17] Methotrexate [Xatmep] 2.5 mg PO WEEKLY 01/25/17 [Last Taken 02/22/17] Potassium Chloride 8 meq PO DAILY 01/25/17 [Last Taken 02/22/17] Pravastatin Sodium [Pravachol] 40 mg PO QHS 01/25/17 [Last Taken 02/21/17] Tamsulosin HCl [Flomax] 0.4 mg PO DAILY 01/25/17 [Last Taken 02/22/17] Hydrocodone/Acetaminophen [Manning 5-325 Tablet] 1 each PO Q6H 02/22/17 [Last Taken Unknown] Lisinopril [Zestril] 5 mg PO DAILY 02/22/17 [Last Taken 02/22/17] Furosemide [Lasix] 20 mg PO 1600 #30 tablet 02/25/17 [Last Taken Unknown] Furosemide [Lasix] 40 mg PO DAILY #30 tablet 02/25/17 [Last Taken Unknown] Levofloxacin [Levaquin] 500 mg PO DAILY #5 tab 02/25/17 [Last Taken Unknown] Metoprolol Tartrate [Lopressor] 12.5 mg PO BID #60 tab 02/25/17 [Last Taken Unknown] Discharge Plan - Discharge Instructions Activity at Discharge: As Per Cardiac Rehab, As Per Physical Therapy Diet at Discharge: Low Salt Diet, Other (2000cc fluid restricted diet) Instructions: Hyperkalemia (DC), Hypotension (DC) Additional Instructions: Please follow up with Dr. Zamudio at appointment on March 10 at 9am. Appointment is at the [place] office. [address] [facility]. Follow up with PCP Dr. Alegre at appointment on March 17 at 2pm. Continue lasix 40mg by mouth in the morning and 20mg by mouth at 4pm. daily continue metoprolol (lopressor) 12.5mg by mouth twice daily. That is half of your 25mg tablet Continue levaquin 500mg daily for 5 days starting tomorrow Continue low sodium diet and limit fluids to 2000mL per day. Senia should be setting up home health with [facility] that will include cardiac rehab Please call with any questions or concern Return to ED if your symptoms are more severe or last longer than usual. Quality Measures - Quality Measures Quality Measures: Advance Directives, Documentation of Current Medications in Medical Record, Elder Maltreatment Screen and Follow-Up Plan, Heart Failure, Screening for High Blood Pressure and F/U Documented - Current Medications Quality Measure: Measure #130: Documentation of Current Medications Documentation of Current Medications: <Current Medications Documented/Reviewed> [G8430] - Blood Pressure Screening Quality Measure: Screening for High Blood Pressure and Follow-Up Documented Does Patient Have Any of the Following: Active Dx of HTN Blood Pressure Classification: Normal BP Reading Systolic Measurement: 98 Diastolic Measurement: 62 Screening for High Blood Pressure: Patient Exclusion, Hx of HTN [G9744] - Heart Failure (FANNIE/ARB Therapy) Quality Measure: Heart Failure Left Ventricular Systolic Function: LV Ejection Fraction less than 40% [3021F] FANNIE Inhibitor or ARB Therapy for LVSD: <FANNIE Inhibitor or ARB therapy prescribed or currently taken> [4010F] - Heart Failure (Beta-javier Therapy) Quality Measure: Heart Failure Left Ventricular Systolic Function: LV Ejection Fraction less than 40% [3021F] Beta-Javier Therapy for LVEF < 40%: <Beta-Javier Therapy Prescribed> [F1038] - Advance Directives Quality Measure: Measure #47: Care Plan Advance Directives Established: Yes Advance Directives Information Provided To Patient: No Advance Directives on File: No Living Will: No Power of Tail Puller: No Advance Care Planning: <Care Plan/Decision Maker Not Decided; Discussed & Documented> [7944F] - Elder Abuse Suspicion Index Screening: Elder Abuse Suspicion Index Screening Rely on people for bathing, dressing, shopping, banking, etc: No Prevented from getting food, clothes, medication, etc: No Made to feel shamed or threatened by someone: No Forced to sign papers or use money against will: No Feel afraid, touched in ways not wanted or hurt physically: No Poor eye contact, withdrawn, malnourished, cuts or bruises: No Screening Result: Negative result EASI Reference Information: Quinton PULLIAM, Emilie C, Evelin D, Danyelle Moore.Development and validation of a tool to assist physicians identification of elder abuse: The Elder Abuse Suspicion Index (EASI ). Journal of Elder Abuse and Neglect, 2008; 20 (3): 276-300. - Elder Maltreatment Screen Quality Measures: Elder Maltreatment Screen and Follow-Up Plan Elder Maltreatment Screen: <Negative, No Follow-Up Plan Required> [O5355]
--- NOTE | 2017-02-25 15:30 | Rehab Evaluation ---
Patient Information - Patient Information Diagnosis: Hypotension, hyperkalemia Ordered Treatment: PT Evaluate and Treat Status: Initial Evaluation Past Medical/Surgical Hx: PMH - Respiratory Hx Respiratory Disorders Yes Hx Asthma Yes PMH - Cardiovascular Hx Cardiovascular Disorders Yes Hx Congestive Heart Failure Yes Hx Hypotension Yes PMH - Neuro Hx Neurological Disorders No PMH - GI Hx Gastrointestinal Disorders No PMH - Hx Genitourinary Disorders Yes Hx Prostate Problems Yes Comment: mass on right kidney PMH - Endocrine Hx Endocrine Disorders Yes Hx Diabetes Yes Hx Thyroid Disease No PMH - Musculoskeletal Hx Musculoskeletal Disorders Yes Hx Arthritis Yes PMH - Psych Hx Psychiatric Problems No PMH - Hematology/Oncology Hx Hematology/Oncology No Disorders Premorbid Status: Detail (The patient reports he walks short distances with standard can and holding onto horowitz.) Social History: Detail (The patient lives in a one story home with his spouse with a ramp at the enterance. The patient's bathroom is equipped with a walk in shower with a seat and grab bars and an elevated toilet with grab bars. The patient reports he does help with light household chors such as dishes. The patient has a 3 wheeled walker and a standard cane.) Precautions: [place], Fall, Cardiac - Time With Patient Total Time Spent With Patient (Min): 30 Treatment Procedures: Detail (Initial Evaluation) Subjective Information - Subjective Information Per Patient (The patient had no complaints.) Objective Data - Mental Status Patient Orientation: Oriented x3 - Visual Perception Appears within normal limits for therapeutic activities - ROM Within normal limits (The patient's UE and LE AROM is strength was WFL except for shoulder flexion and abduction limitations to aproximately 130 degrees bilaterally.) - Strength/Tone Within normal limits (The patient's UE and LE strength is generally 5/5.) - Bed Mobility Independent (The patient was independent with sit to and from supine.) - Transfers Independent (The patient was independent/supervison with sit to stand.) - Balance Balance Sitting: Good Balance Standing: Fair (The patient's balance using the Tinetti Assessment Tool was 18/28 which is in the at risk for falling category.) - Gait Detail (The patient ambulated with standard and hanging occasionally onto rail in hallway with CG of 1 a distance of 60 feet x 1. The patient had occasional stagger steps and ambulated with decreased stride length . The patient exhibited shortness of breath after ambulating.) Therapy Assessment - Therapy Assessment Detail (The patient was independent with bed mobility and transfers. The patient ambulated with an unsteady gait pattern and experienced shortness of breath after ambulating. Feel the patient would benefit from Home PT, short term to evaluate the patient's safety in home environment, improve balance and ability to complete sustained physical activity.) Problem List - Problem List Physical Therapy Problem List: Detail (1) Decreased balance as measured by the Tinetti Assessment Tool (high risk for falls). 2) Unsteady gait 3) Decreased ability to complete sustained physical activity) Goals - Goals Physical Therapy Goals: 1) The patient will ambulate with assistive device distances of 75 feet to 100 feet without shortness of breath. 2) Improve the patient's balance using the Tinetti Assessment Tool by 2 to 3 points. 3) The patient will tolerate 25 minutes of physical activity with one rest period. Prognosis - Prognosis Good Plan - Plan Physical Therapy Plan: PT once a day M-F for ambulation and balance exercises. Home PT is recommended upon discharge.
[2017-02-25] MEDS: FUROSEMIDE 20 MG TABLET PO SCH (15:37)
== END 2017-02-25 16:55 | disposition home health service (06) | DRG 292 ==
LOC: ER 16:01 → MEDSURG 18:03 → OBSVTOIN 02-24 11:26
PROVIDERS: ADMIT Internal Medicine; ATTEND Internal Medicine
DX: I50.43 Acute on chronic combined systolic (congestive) and diastolic (congestive) heart failure (principal); N17.9 Acute kidney failure, unspecified; I95.9 Hypotension, unspecified; J45.909 Unspecified asthma, uncomplicated; D64.9 Anemia, unspecified; I10 Essential (primary) hypertension; Z87.891 Personal history of nicotine dependence
CPT/HCPCS: 99285 ×2; 83605; 85025 ×2; 80053 ×4; 36416 ×5; 82948 ×5; 81003; 85027; 71020 ×2; 94760 ×2; 93005; 93010; G0378 ×30; 80048; 99223; 99239; J1650; J1940